=== PATIENT | female | born 1985 | race Caucasian/White ===

== ENCOUNTER 2019-01-07 11:02 | Day surgery (SDC) | payer OTHER ==
[2019-01-07] MEDS ORDERED: Lidocaine 2% 5 ML SDV ONE (11:58)
[2019-01-07] MEDS ORDERED: Iopamidol 408 MG/ML 50 ML SDV ONE (11:59)
[2019-01-07] MEDS ORDERED: Betamethasone Acetate/Betamethasone Sod Phosphate 30 MG/5 ML MDV ONE (11:59)
[2019-01-07] MEDS ORDERED: Ropivacaine 0.5% 5 MG/ML 30 ML SDV ONE (11:59)
--- NOTE | 2019-01-07 20:14 | OR ---
SURGEON: Shi Bello D.O. DATE OF PROCEDURE: 01/07/2019 OR STAFF PRESENT: 1. Kayy Myles RT. 2. Kayy Vernon RN. 3. Leah Dong RN. PREOPERATIVE DIAGNOSES: 1. Lumbar degenerative disk disease, L4-5, L5-S1. 2. Lumbar scoliosis. 3. Lumbar spondylosis. 4. Chronic low back pain. 5. Right lower extremity radiculopathy. POSTOPERATIVE DIAGNOSES: 1. Lumbar degenerative disk disease, L4-5, L5-S1. 2. Lumbar scoliosis. 3. Lumbar spondylosis. 4. Chronic low back pain. 5. Right lower extremity radiculopathy. PROCEDURES PERFORMED: 1. Caudal epidural steroid injection. 2. Fluoroscopic guidance for needle placement. 3. Local with oral Valium for sedation. PREOPERATIVE PAIN: 7/10. POSTOPERATIVE PAIN: /10. FOLLOWUP: In the Pain Clinic in 3 weeks. SCREENING QUESTIONS: The patient answered "no" to all of the following questions: 1. Are you allergic to latex? 2. Do you have a bleeding disorder? 3. Do you have any current local or systemic infections? 4. Are you taking any anti-inflammatories or blood thinners? 5. Do you have any joint replacements, heart valve replacements, or a pacemaker? DESCRIPTION OF PROCEDURE: The patient had the procedure thoroughly explained including all possible risks, benefits and alternatives. Consent was signed in my clinic indicating understanding and willingness to proceed. The patient presented to [facility] [place] and was escorted to the dressing room to disrobe and change into a hospital gown. Preoperative vital signs were taken and stable. The patient reported that Valium was taken prior to the procedure. The patient was brought back to the procedure room and placed in the prone position on the procedure room table. A pillow was placed under the hips in order to flatten the lumbar lordosis. The back was prepped with ChloraPrep and sterilely draped. All personnel in the operating room were dressed in appropriate attire including surgical scrubs, head and shoe covers. This was to ensure sterility while in the treatment room. During the time fluoroscopy was in use, all personnel in the operating room wore lead maddox with thyroid collars. Sterile technique was used throughout the procedure. The patient was awake and conversant throughout the procedure. There was no evidence of infection at the site of needle insertion. Skeletal landmarks were identified under fluoroscopy for the lumbar epidural. Skin was anesthetized with 2% lidocaine with a sterile 27-gauge 1.5 inch needle. Then a 20-gauge Tuohy epidural needle was placed in the epidural space with loss of resistance technique under fluoroscopic guidance. No heme, cerebrospinal fluid, or paresthesias were noted. Isovue-200 contrast dye was injected in 0.2 cubic centimeter increments and seen to outline the epidural space in both AP and lateral views. There was no intravascular flow pattern observed under live fluoroscopy. Then 12 milligrams of Celestone was slowly injected after negative aspiration. The patient tolerated the procedure well. Vital signs were stable during and after the procedure. The staff escorted the patient to the recovery area and the patient was released in stable condition after a brief stay in the recovery room monitored by the nurse. The patient was given both oral and written discharge and follow up instructions with recommendation to follow up given for 2-3 weeks. The patient voiced understanding including understanding of those signs and symptoms that would require emergency care. The patient knows how to contact the office if there are any additional problems or questions in the meantime. HOGMADY / MARCELINO /[id number]
== END 2019-01-07 13:28 | disposition home or self-care (01) ==
LOC: MW.SDS 11:02
PROVIDERS: ATTEND Anesthesiology
DX: G89.29 Other chronic pain (principal); M51.36 Other intervertebral disc degeneration, lumbar region; M41.86 Other forms of scoliosis, lumbar region; M47.816 Spondylosis without myelopathy or radiculopathy, lumbar region; M53.87 Other specified dorsopathies, lumbosacral region; M54.10 Radiculopathy, site unspecified; M79.18 Myalgia, other site; F17.210 Nicotine dependence, cigarettes, uncomplicated; Z79.899 Other long term (current) drug therapy; Z91.040 Latex allergy status
CPT/HCPCS: 62323; J0702; J2001; J2795; Q9966

== ENCOUNTER 2019-03-04 10:47 | Day surgery (SDC) | payer OTHER ==
[2019-03-04] MEDS ORDERED: Ropivacaine 0.5% 5 MG/ML 30 ML SDV ONE (12:01)
[2019-03-04] MEDS ORDERED: Lidocaine 2% 5 ML SDV ONE (12:01)
[2019-03-04] MEDS ORDERED: Betamethasone Acetate/Betamethasone Sod Phosphate 30 MG/5 ML MDV ONE (12:01)
[2019-03-04] MEDS ORDERED: Iopamidol 200-M 10 ML vial ITHECAL ONE (12:01)
--- NOTE | 2019-03-04 20:19 | OR ---
SURGEON: Shi Bello D.O. DATE OF PROCEDURE: 03/04/2019 PRIMARY SURGEON: Shi Bello D.O. PREOPERATIVE DIAGNOSES: 1. Lumbar facet arthropathy. 2. Lumbar degenerative disk disease. 3. Chronic low back pain. POSTOPERATIVE DIAGNOSES: 1. Lumbar facet arthropathy. 2. Lumbar degenerative disk disease. 3. Chronic low back pain. OPERATING ROOM STAFF PRESENT: 1. Delores Brothers RN. 2. Leah Dong RN. 3. Teresa Hudson RT. PROCEDURES PERFORMED: 1. Diagnostic medial branch block, L4 bilateral. 2. Diagnostic medial branch block, L5 bilateral. 3. Fluoroscopic guidance for needle placement. 4. Local with oral Valium for sedation. SCREENING QUESTIONS: The patient answered "No" to all the following questions: 1. Are you allergic to iodine, Betadine or latex? 2. Do you have a bleeding disorder? 3. Are you on anti-inflammatories or blood thinners? 4. Do you have any current local or systemic infections? MEDICAL NECESSITY: This is a patient with chronic low back pain who comes in for the above diagnostic procedure. This procedure is being performed in accordance with national guidelines written by the [employer]; please see medical necessity note in chart. DESCRIPTION OF PROCEDURE: The patient had the procedure thoroughly explained including risks, benefits and alternatives. Consent was signed in my clinic indicating understanding and willingness to proceed. The patient presented to [facility] and was escorted to the dressing room to disrobe and change into a hospital gown. Preoperative history and screening were performed by my nurse. Vital signs were taken and stable. The patient reported that Valium 10 milligrams was taken prior to the procedure. The patient was brought back to the procedure room and placed in the prone position on the procedure room table. A pillow was placed under the abdomen in order to flatten the lumbar lordosis. The back was prepped with ChloraPrep and sterilely draped. All personnel in the procedure room were dressed in appropriate attire including surgical scrubs, head and shoe covers. This was to ensure sterility while in the treatment room. During the time fluoroscopy was in use all personnel in the operating room wore lead maddox with thyroid collars. Sterile technique was used during the procedure. Then the fluoroscope was positioned to provide a right oblique view for the right L4 medial branch. This was begun by anesthetizing the skin and soft tissues. The fluoroscope was positioned and a sterile 22-gauge 3.5 inch needle was placed at the junction of the transverse process in the superior articular process of the L5 vertebral body. Precise needle placement was confirmed by fluoroscopy. Then 0.2 cubic centimeters of IsoVue-200 contrast dye was injected through microbore tubing under live fluoroscopy and showed no intravascular flow pattern and adequate flow over the target medial branch. After negative aspiration, 1.0 cubic centimeters of 0.5% Ropivacaine and Celestone was injected without complications. The fluoroscope was then positioned to provide a right L5 dorsal ramus block. This was begun by anesthetizing the skin and soft tissues over the right sacral sulcus. Then using fluoroscopic guidance, a sterile 22-gauge 3.5 inch spinal needle was positioned at the right sacral ala. Precise needle placement was confirmed by fluoroscopy in AP and oblique views, and 0.2 cubic centimeters of IsoVue-200 contrast dye was injected through microbore tubing under live fluoroscopy and showed no intravascular flow pattern and adequate flow over the target nerves. After negative aspiration, 1.0 cubic centimeters of 0.5% Ropivacaine and Celestone was injected. No complications were noted. The fluoroscope was positioned then to provide a left L4 medial branch block. The skin was anesthetized. Then a 22-gauge 3.5 inch spinal needle was positioned at the junction of the transverse process in the superior articular process of the L5 vertebral body on the left. Precise needle placement was confirmed by fluoroscopy and with 0.2 cubic centimeters of IsoVue-200 contrast dye injected through microbore tubing showing no intravascular flow pattern and adequate flow over the target medial branch of L4 on the left. Then 1.0 cubic centimeters of 0.5% Ropivacaine and Celestone was injected after negative aspiration without complications. Then the fluoroscope was positioned for the left L5 dorsal ramus block. This was begun by anesthetizing the skin and soft tissues. Then with fluoroscopic guidance a sterile 22-gauge 3.5 inch spinal needle was positioned at the left sacral ala. Precise needle placement was confirmed with 0.2 cubic centimeters of IsoVue-200 contrast dye injected through microbore tubing under live fluoroscopy showing no intravascular flow pattern and adequate flow over the target L5 nerve. Then 1.0 cubic centimeters of 0.5% Ropivacaine and Celestone was injected after negative aspiration without complications. The procedure was well tolerated and vital signs were stable during and after the procedure. The staff escorted the patient to the recovery area. The patient was given both oral and written discharge and followup instructions. The patient will follow up with a pain diary which will be evaluated over this evening doing things that would normally cause pain. We will evaluate the efficacy of the diagnostic lumbar medial branch blocks as the patient will follow up in the clinic the next day. The patient was given both oral and written discharge and followup instructions. The patient voiced understanding including understanding of those signs and symptoms that would require emergency care and knows how to contact the office if there are any questions or concerns in the meantime. PREOPERATIVE PAIN: 5/10. POSTOPERATIVE PAIN: 0/10. FEMI / MARCELINO /[id number] CAIO
== END 2019-03-04 13:22 ==
LOC: MW.SDS 10:47
PROVIDERS: ATTEND Anesthesiology
DX: G89.29 Other chronic pain (principal); M54.5 Low back pain; M12.88 Other specific arthropathies, not elsewhere classified, other specified site; M51.16 Intervertebral disc disorders with radiculopathy, lumbar region; M25.551 Pain in right hip; M25.552 Pain in left hip; M47.26 Other spondylosis with radiculopathy, lumbar region; M79.18 Myalgia, other site; G57.03 Lesion of sciatic nerve, bilateral lower limbs; M46.1 Sacroiliitis, not elsewhere classified; M41.9 Scoliosis, unspecified; F17.210 Nicotine dependence, cigarettes, uncomplicated; Z91.040 Latex allergy status; Z79.899 Other long term (current) drug therapy; Z79.891 Long term (current) use of opiate analgesic
CPT/HCPCS: 64493; J0702; J2001; J2795; Q9966; 64450

== ENCOUNTER 2024-08-08 08:25 | Emergency (ER) | payer SELFPAY ==
[2024-08-08] MEDS ORDERED: Sodium Chloride 0.9% 2.5 ML Syringe FLUSH PRN (08:49)
[2024-08-08] MEDS ORDERED: Sodium Chloride 0.9% 10 ML Syringe FLUSH PRN (08:49)
[2024-08-08] MEDS: diphenhydrAMINE 50 MG/ML SDV IVPUSH ONE (09:25)
[2024-08-08] MEDS: Ketorolac 30 MG/ML SDV IVPUSH ONE (09:25)
[2024-08-08] MEDS: Metoclopramide 10 MG/2 ML SDV IVPUSH ONE (09:25)
[2024-08-08] MEDS: Sodium Chloride 0.9% 1,000 ML IV STA (09:26)
[2024-08-08 09:33] LABS: BASOPHILS ABSOLUTE AUTO 0.13 K/uL (0.00-0.20); BASOPHILS PERCENT AUTO 1.3 % (0.0-1.0); EOSINOPHILS ABSOLUTE AUTO 0.11 K/uL (0.00-0.45); EOSINOPHILS PERCENT AUTO 1.1 % (0.0-6.0); HEMATOCRIT 33.7 % (37.0-47.0); HEMOGLOBIN 10.2 g/dL (12.0-16.0); IMMATURE GRAN ABSOLUTE AUTO 0.02 K/uL (0.00-0.05); IMMATURE GRAN PERCENT AUTO 0.2 % (0.0-0.4); LYMPHOCYTES ABSOLUTE AUTO 1.64 K/uL (1.00-4.80); MEAN CORPUSCULAR HEMOGLOBIN 20.6 pg (28.0-32.0); MEAN CORPUSCULAR HGB CONC 30.3 g/dL (32.0-36.0); MEAN CORPUSCULAR VOLUME 68.1 fL (83.0-99.0); MEAN PLATELET VOLUME 9.1 fL (9.4-12.3); MONOCYTES PERCENT AUTO 8.3 % (0.0-8.0); NEUTROPHILS ABSOLUTE AUTO 6.95 K/uL (1.80-7.70); NEUTROPHILS PERCENT AUTO 72.1 % (41.0-71.0); PLATELET COUNT,PLT 520 K/uL (150-400); RED BLOOD CELL COUNT 4.95 M/uL (4.10-5.30); WHITE BLOOD CELL COUNT,WBC 9.65 K/uL (3.9-11.3)
[2024-08-08 10:03] LABS: A/G RATIO 1.1 (0.9-1.6); BILIRUBIN TOTAL 0.3 mg/dL (0.2-1.0); CALCIUM 9.5 mg/dL (8.5-10.1); CARBON DIOXIDE,CO2 27.9 mmol/L (21.0-32.0); CREATININE 0.8 mg/dL (0.6-1.0); EST CRCL DRUG DOSING (CG) 77.33 mL/min; POTASSIUM,K 4.3 mmol/L (3.5-5.1); PROTEIN TOTAL,TP 7.7 g/dL (6.4-8.2)
== END 2024-08-08 10:28 | disposition home or self-care (01) ==
LOC: MW.ED 08:25
DX: D64.9 Anemia, unspecified (principal); R51.9 Headache, unspecified; Z88.2 Allergy status to sulfonamides; Z75.8 Other problems related to medical facilities and other health care
CPT/HCPCS: 36415; 70450; 80053; 85025; 96374; 96375; 99284; J1200; J1885; J2765; J7030